=== PATIENT | female | born 1955 | race African-American/Black ===

== ENCOUNTER 2020-05-01 19:53 | Emergency (ER) | payer OTHER ==
[~2020-05-01] VITALS: Ht 167.6 cm; Wt 120.7 kg
[~2020-05-01 19:53] MED LIST: AMLO-211; HYDR25TA6
--- NOTE | 2020-05-01 20:15 | NUR ---
Pt has taken no OTC antifever or OTC meds for relief [employer]. 90-92% RA, o2 off will continue to monitor on RA. ERP at bedside to order basic labs, tylenol, pcxr will continue to monitor o2 sats on RA.
[2020-05-01] MEDS ORDERED: ACETAMINOPHEN 500 MG TABLET ONE (20:23)
--- NOTE | 2020-05-01 20:27 | NUR ---
Medicated with tylenol for fever, o2 sats at 91-94%RA. Waiting for labs and PCXR.
[2020-05-01] MEDS ORDERED: ACETAMINOPHEN 500 MG TABLET PO ONE (20:30)
--- NOTE | 2020-05-01 20:46 | NUR ---
Charlie collected and sent by SYLVIA.
[2020-05-01 21:09] LABS: BASOPHILS % (AUTO) 1 % (0-1); EOSINOPHILS % (AUTO) 1 % (1-7); LYMPHOCYTES % (AUTO) 28 % (22-44); MEAN CORPUSCULAR HGB CONC 33.8 g/dL (32.4-35.8); MEAN PLATELET VOLUME 8.8 fL (7.4-10.4); MONOCYTES % (AUTO) 15 % (2-9); NEUTROPHILS % (AUTO) 56 % (42-75); PLATELET COUNT 244 x10^3/uL (130-400); RED CELL DISTRIBUTION WIDTH 12.8 % (9.6-15.2)
[2020-05-01 21:12] LABS: MD NO
[2020-05-01 21:19] LABS: ALBUMIN 3.1 g/dL (3.4-5.0); ANION GAP 6 mmol/L (5-15); CALCIUM 8.4 mg/dL (8.5-10.1); CHLORIDE 108 mmol/L (98-107); CREATININE 1.43 mg/dL (0.55-1.02)
[2020-05-01 21:22] LABS: TROPONIN I < 0.015 ng/mL (0.000-0.045)
--- NOTE | 2020-05-01 21:46 | NUR ---
Registration at bedside. Will road test pt when finished.
[2020-05-01 21:54] VITALS: BP 123/90
--- NOTE | 2020-05-01 21:57 | NUR ---
Road test: down dobbins and back to room, o2 sat stable at 92-94%RA, RR 22 post ambulation, says feels good, fever down to 100, hr 90/s.
[2020-05-01] MEDS ORDERED: AZITHROMYCIN 500 MG TABLET ONE (22:05)
--- NOTE | 2020-05-01 22:08 | NUR ---
Pt given meds per order, to be discharged. Pt states she is feeling better and would like to go home.
[2020-05-01] MEDS ORDERED: AZITHROMYCIN 500 MG TABLET PO ONE (22:30)
== END 2020-05-01 22:26 | disposition home or self-care (01) ==
LOC: ED 20:23
DX: U07.1 COVID-19 (principal); J18.9 Pneumonia, unspecified organism; R51.9 Headache, unspecified; R05 Cough; R50.9 Fever, unspecified; R00.0 Tachycardia, unspecified; I49.3 Ventricular premature depolarization; R06.02 Shortness of breath; M79.10 Myalgia, unspecified site
CPT/HCPCS: 36415; 71045; 80048; 82040; 84484; 85025; 93005; 99285; U0003

== ENCOUNTER 2020-10-10 11:27 | Emergency (ER) | payer OTHER ==
[~2020-10-10] VITALS: Ht 167.6 cm; Wt 100.0 kg
[2020-10-10] MEDS ORDERED: ACETAMINOPHEN 500 MG TABLET ONE (12:21)
--- NOTE | 2020-10-10 12:29 | NUR ---
TYLENOL GIVEN PER ERP ORDER. ICE PACK PROVIDED, CALL LIGHT WITHIN REACH. PT TO XRAY.
[2020-10-10] MEDS ORDERED: ACETAMINOPHEN 500 MG TABLET PO ONE (12:30)
[2020-10-10 12:55] VITALS: BP 144/100
--- NOTE | 2020-10-10 13:03 | NUR ---
IMAGING RESULTS BACK, PT FOR RECHECK. ERP NOTIFIED OF IMPROVED BP AND MEDS PT USED TO TAKE FOR BP. PER PT, NO MEDS FOR OVER A YEAR D/T INABILITY TO PAY FOR THEM AND NO INSURANCE.
== END 2020-10-10 13:45 | disposition home or self-care (01) ==
LOC: ED 13:00
DX: G89.11 Acute pain due to trauma (principal); M25.562 Pain in left knee; M25.572 Pain in left ankle and joints of left foot; I10 Essential (primary) hypertension; Z76.0 Encounter for issue of repeat prescription; W01.0XXA Fall on same level from slipping, tripping and stumbling without subsequent striking against object, initial encounter; Y93.89 Activity, other specified; Y92.410 Unspecified street and highway as the place of occurrence of the external cause; Y99.8 Other external cause status
CPT/HCPCS: 99284